=== PATIENT | female | born 1935 | race Caucasian/White ===

== ENCOUNTER 2020-12-19 18:56 | Emergency (ER) | payer OTHER, MEDICARE ==
[~2020-12-19 18:56] MED LIST: ASPIRIN325 MG PO; CARAFATE1 GM PO; LEVOXYL25 MCG PO
== END 2020-12-19 21:35 | disposition home or self-care (01) ==
LOC: FER 18:56
DX: S13.4XXA Sprain of ligaments of cervical spine, initial encounter (principal); Z88.8 Allergy status to other drugs, medicaments and biological substances; V49.40XA Driver injured in collision with unspecified motor vehicles in traffic accident, initial encounter; Y92.410 Unspecified street and highway as the place of occurrence of the external cause
CPT/HCPCS: 70450; 72125

== ENCOUNTER 2021-02-07 15:59 | Emergency (ER) | payer MEDICARE, OTHER ==
[2021-02-07] MEDS ORDERED: COLACE100 MG PO (20:16)
== END 2021-02-07 20:20 | disposition home or self-care (01) ==
LOC: FER 15:59
DX: K59.00 Constipation, unspecified (principal); Z88.8 Allergy status to other drugs, medicaments and biological substances; Z91.040 Latex allergy status
CPT/HCPCS: 93005

== ENCOUNTER 2022-02-14 16:54 | Emergency (ER) | payer MEDICARE, OTHER ==
[~2022-02-14 16:54] MED LIST changes: +COLACE100 MG PO
[2022-02-14 20:50] LABS: BASOPHIL 0.4 % (0-2); EOSINOPHIL 0 % (0-7); HCT 32.3 % (37.0-47.0); HGB 10.5 g/dl (12.5-16.0); LYMPHOCYTE 10.5 % (15-48); MCH 27.6 pg (25.0-31.0); MCHC 32.5 g/dL (32.0-36.0); MCV 84.8 fL (78.0-100.0); MPV 9.6 fL (6.0-9.5); NEUTROPHIL 78.7 % (41-80); NRBC 0; PLT 212 K/uL (150-400); RBC 3.81 M/uL (4.20-5.40); RDW 15.9 % (11.5-14.0); WBC 7.9 K/uL (4.0-10.5)
[2022-02-14 20:55] LABS: INR 1.16 (0.9-1.2); PROTHROMBIN TIME 14.2 SECONDS (11.8-13.4); PTT 31.7 SECONDS (24.4-34.7)
[2022-02-14 21:06] LABS: ALBUMIN 3.3 g/dL (3.4-5.0); BILIRUBIN - TOTAL 0.5 mg/dL (0.2-1.0); BUN/CREAT RATIO (CALC) 19.4 RATIO; CREATININE 0.67 mg/dL (0.51-0.95); POTASSIUM 3.7 mmol/L (3.5-5.1); TOTAL PROTEIN 6.3 g/dL (6.4-8.2)
[2022-02-14] MEDS ORDERED: PREDNISONE 20MG20 MG PO (21:39)
[2022-02-14] MEDS ORDERED: ONDANSETRON ODT4 MG PO (21:39)
[2022-02-14] MEDS ORDERED: PAXLOVID 150-11 EACH PO (21:47)
== END 2022-02-14 22:10 | disposition home or self-care (01) ==
LOC: FER 16:54
PROVIDERS: Internal Medicine
DX: U07.1 COVID-19 (principal); D64.9 Anemia, unspecified; Z88.8 Allergy status to other drugs, medicaments and biological substances; Z91.040 Latex allergy status
CPT/HCPCS: 36415; 71045; 80053; 83880; 84484; 85025; 85610; 85730; 93005; J1100; J7030